=== PATIENT | female | born 1935 | race Caucasian/White ===

== ENCOUNTER 2021-04-28 16:58 | Inpatient (IN) ==
[2021-04-28] MEDS ORDERED: ENOXAPARIN 80 MG/0.8 ML SQ SCH (18:00)
[2021-04-28] MEDS ORDERED: Warfarin perPT PO PRN (18:00)
[2021-04-28] MEDS: metroNIDAZOLE 500 MG TABLET PO SCH (18:32)
[2021-04-28] MEDS: *HR* OxyCODONE/APAP 10/325 TABLET PO PRN (20:26)
[2021-04-28] MEDS: Insulin LISPRO 300 UNITS/3 ML VIAL SUBQ SCH (20:55)
[2021-04-28] MEDS ORDERED: NON-FORMULARY MEDICATION 1 EACH EACH (Apixaban [Eliquis] 5 MG Tab.Ds.Pk) PO SCH (21:00)
[2021-04-29] MEDS: metroNIDAZOLE 500 MG TABLET PO SCH ×3 (03:03→19:05)
[2021-04-29 06:51] LABS: Basophils % 0.4 %; Eosinophils % 0.3 %; Hematocrit 32.5 % (35.3-44.9); Hemoglobin 10.1 g/dL (11.5-15.4); Immature Granulocytes % 0.6 % (0-4); Lymphocytes # 0.6 K/mcL (0.6-4.6); Lymphocytes % 5.9 %; Mean Corpuscular HGB Conc 31.1 g/dL (31.6-35.5); Mean Corpuscular Hemoglobin 26.4 pg (28.0-33.3); Mean Corpuscular Volume 85.1 fL (83.0-100.0); Monocytes # 0.7 K/mcL (0.0-1.3); Neutrophils # 8.6 K/mcL (1.6-8.9); Platelet Count 590 K/mcL (140-400); Red Blood Count 3.82 M/mcL (3.82-4.97); Red Cell Distribution Width 22.3 % (11.5-14.5); Segmented Neutrophils % 85.8 %
[2021-04-29 07:14] LABS: BUN/Creatinine Ratio 19 (6-26); Blood Urea Nitrogen 6 mg/dL (8-23); Carbon Dioxide 30 mEq/L (23-29); Chloride 95 mEq/L (98-107); Glucose 128 mg/dL (70-105); Osmolality,Calculated 277 (280-300); Potassium 3.5 mEq/L (3.5-5.1); Sodium 134 mEq/L (136-145); eGFR For African Americans > 60 (> 60); eGFR For Non-African Americans > 60 (> 60)
[2021-04-29] MEDS ORDERED: *HR* Dextrose 50 % in Water (Syg) 50 ML SYRINGE IVP PRN (07:45)
[2021-04-29] MEDS ORDERED: Dextrose Gel 15 GM/37.5 ML TUBE PO PRN ×2 (07:45)
[2021-04-29] MEDS ORDERED: D5% in Water 1,000 ML IVC PRN (07:45)
[2021-04-29] MEDS: Insulin LISPRO 300 UNITS/3 ML VIAL SUBQ SCH ×4 (07:51→20:05)
[2021-04-29] MEDS ORDERED: CefTRIAXone 2,000 MG VIAL IVPB SCH (09:00)
[2021-04-29] MEDS: lisinopriL 10 MG TABLET PO SCH (09:58)
[2021-04-29] MEDS: Bisacodyl 10 MG RECTAL SUPPOSITORY RC SCH (09:58)
[2021-04-29] MEDS: Famotidine 20 MG TABLET PO SCH (09:58)
[2021-04-29] MEDS: cefTRIAXone 2,000 MG in 0.9 % Sodium Chloride Mini Bag 100 ML IVPB SCH (09:59)
[2021-04-29 10:36] LABS: INR 4.3
[2021-04-29 11:01] LABS: Prothrombin Time 47.3 Seconds (9.4-12.1)
[2021-04-29 20:00] LABS: INR 3.7; Prothrombin Time 41.1 Seconds (9.4-12.1)
[2021-04-29] MEDS: *HR* OxyCODONE/APAP 10/325 TABLET PO PRN (20:17)
[2021-04-30] MEDS: metroNIDAZOLE 500 MG TABLET PO SCH ×4 (02:11→17:15)
[2021-04-30] MEDS: *HR* OxyCODONE/APAP 10/325 TABLET PO PRN (06:07)
[2021-04-30 08:13] LABS: INR 3.5; Prothrombin Time 38.2 Seconds (9.4-12.1)
[2021-04-30] MEDS: Famotidine 20 MG TABLET PO SCH (09:18)
[2021-04-30] MEDS: lisinopriL 10 MG TABLET PO SCH (09:18)
[2021-04-30] MEDS: cefTRIAXone 2,000 MG in 0.9 % Sodium Chloride Mini Bag 100 ML IVPB SCH (09:19)
[2021-04-30] MEDS: Insulin LISPRO 300 UNITS/3 ML VIAL SUBQ SCH ×4 (09:19→21:14)
[2021-04-30] MEDS: Bisacodyl 10 MG RECTAL SUPPOSITORY RC SCH (09:47)
[2021-05-01] MEDS: metroNIDAZOLE 500 MG TABLET PO SCH ×3 (01:57→17:41)
[2021-05-01 05:54] LABS: Prothrombin Time 33.5 Seconds (9.4-12.1)
[2021-05-01] MEDS: Insulin LISPRO 300 UNITS/3 ML VIAL SUBQ SCH ×4 (09:09→21:25)
[2021-05-01] MEDS: cefTRIAXone 2,000 MG in 0.9 % Sodium Chloride Mini Bag 100 ML IVPB SCH (09:21)
[2021-05-01] MEDS: lisinopriL 10 MG TABLET PO SCH (09:22)
[2021-05-01] MEDS: Famotidine 20 MG TABLET PO SCH (09:22)
[2021-05-01] MEDS: Bisacodyl 10 MG RECTAL SUPPOSITORY RC SCH (09:23)
[2021-05-01] MEDS: *HR* OxyCODONE/APAP 10/325 TABLET PO PRN ×2 (09:23→21:24)
[2021-05-01] MEDS ORDERED: *HR* Warfarin 0.5 MG TABLET PO ONE (18:00)
[2021-05-01] MEDS: Sennosides/Docusate Sodium TABLET PO SCH (21:25)
[2021-05-01 23:22] LABS: Basophils % 0.4 %; Eosinophils % 0.2 %; Hematocrit 31.7 % (35.3-44.9); Hemoglobin 9.8 g/dL (11.5-15.4); Immature Granulocytes % 0.6 % (0-4); Lymphocytes # 1.4 K/mcL (0.6-4.6); Lymphocytes % 16.7 %; Mean Corpuscular HGB Conc 30.9 g/dL (31.6-35.5); Mean Corpuscular Hemoglobin 26.3 pg (28.0-33.3); Mean Corpuscular Volume 85.2 fL (83.0-100.0); Monocytes # 0.7 K/mcL (0.0-1.3); Neutrophils # 6.1 K/mcL (1.6-8.9); Platelet Count 400 K/mcL (140-400); Red Blood Count 3.72 M/mcL (3.82-4.97); Red Cell Distribution Width 22.2 % (11.5-14.5); Segmented Neutrophils % 74.1 %; White Blood Count 8.2 K/mcL (4.3-11.1)
[2021-05-01 23:24] LABS: ABG Base Excess 4 mEq/L (-2 to 3); ABG HCO3 29 mEq/L (21-27); ABG Oxygen Saturation 98 % (95-98); ABG PCO2 42 mmHg (35-45); ABG PH 7.44 pH Units (7.32-7.45); ABG PO2 93 mmHg (85-104); ABG TCO2 30 mEq/L (20-26)
[2021-05-01 23:34] LABS: BUN/Creatinine Ratio 26 (6-26); Blood Urea Nitrogen 8 mg/dL (8-23); Calcium 7.5 mg/dL (8.6-10.3); Carbon Dioxide 30 mEq/L (23-29); Chloride 95 mEq/L (98-107); Glucose 168 mg/dL (70-105); Osmolality,Calculated 274 (280-300); Potassium 3.1 mEq/L (3.5-5.1); Sodium 131 mEq/L (136-145); eGFR For African Americans > 60 (> 60); eGFR For Non-African Americans > 60 (> 60)
[2021-05-02] MEDS ORDERED: Potassium Chloride 40 MEQ, Lidocaine 1% 2 ML in 0.9 % Sodium Chloride 500 ML IVPB ONE (00:56)
[2021-05-02] MEDS ORDERED: Furosemide 20 MG/2 ML VIAL IVP ONE (01:18)
[2021-05-02] MEDS ORDERED: Saline Nasal Spray 44 ML BOTTLE NS PRN (01:19)
[2021-05-02] MEDS ORDERED: Artificial Tears SOLN 15 ML BOTTLE BOTH EYES PRN (01:19)
[2021-05-02] MEDS: Calcium Gluconate 1gm/50mL 1 GM/50 ML BAG IVPB SCH ×2 (01:37→02:35)
[2021-05-02] MEDS: metroNIDAZOLE 500 MG TABLET PO SCH ×4 (01:38→16:49)
[2021-05-02 02:00] LABS: Magnesium 1.5 mg/dL (1.6-2.6); Phosphorous 2.2 mg/dL (2.7-4.5)
[2021-05-02] MEDS: Saliva Stimulant 44.3ml BOTTLE PO PRN (02:35)
[2021-05-02] MEDS: Ipratropium 1 PUFF INHALER IH SCH ×4 (04:36→21:02)
[2021-05-02 07:59] LABS: INR 3.1; Prothrombin Time 34.8 Seconds (9.4-12.1)
[2021-05-02] MEDS: Insulin LISPRO 300 UNITS/3 ML VIAL SUBQ SCH ×4 (08:10→20:51)
[2021-05-02] MEDS: Sennosides/Docusate Sodium TABLET PO SCH ×3 (08:11→20:50)
[2021-05-02] MEDS: Chlorhexidine Rinse 15 ML MOUTHWASH MM SCH ×3 (08:11→20:50)
[2021-05-02] MEDS: Famotidine 20 MG TABLET PO SCH ×2 (08:11→09:21)
[2021-05-02] MEDS: lisinopriL 10 MG TABLET PO SCH ×2 (08:11→09:21)
[2021-05-02] MEDS: cefTRIAXone 2,000 MG in 0.9 % Sodium Chloride Mini Bag 100 ML IVPB SCH (09:22)
[2021-05-02] MEDS: *HR* OxyCODONE/APAP 10/325 TABLET PO PRN (16:50)
[2021-05-03] MEDS: metroNIDAZOLE 500 MG TABLET PO SCH ×3 (02:49→17:09)
[2021-05-03] MEDS: *HR* OxyCODONE/APAP 10/325 TABLET PO PRN (03:15)
[2021-05-03] MEDS: Ipratropium 1 PUFF INHALER IH SCH ×4 (04:21→22:42)
[2021-05-03 08:18] LABS: Hematocrit 31.6 % (35.3-44.9); Hemoglobin 9.7 g/dL (11.5-15.4); Mean Corpuscular HGB Conc 30.7 g/dL (31.6-35.5); Mean Corpuscular Hemoglobin 25.9 pg (28.0-33.3); Mean Corpuscular Volume 84.3 fL (83.0-100.0); Mean Platelet Volume 10.6 fL (9.4-12.4); Platelet Count 356 K/mcL (140-400); Red Blood Count 3.75 M/mcL (3.82-4.97); Red Cell Distribution Width 22.1 % (11.5-14.5); White Blood Count 7.4 K/mcL (4.3-11.1)
[2021-05-03 08:29] LABS: BUN/Creatinine Ratio 23 (6-26); Blood Urea Nitrogen 7 mg/dL (8-23); Calcium 7.7 mg/dL (8.6-10.3); Carbon Dioxide 31 mEq/L (23-29); Chloride 97 mEq/L (98-107); Glucose 157 mg/dL (70-105); Magnesium 1.4 mg/dL (1.6-2.6); Osmolality,Calculated 281 (280-300); Potassium 3.5 mEq/L (3.5-5.1); Sodium 135 mEq/L (136-145); eGFR For African Americans > 60 (> 60); eGFR For Non-African Americans > 60 (> 60)
[2021-05-03 08:31] LABS: INR 2.7; Prothrombin Time 29.6 Seconds (9.4-12.1)
[2021-05-03] MEDS ORDERED: Calcium Gluconate 1gm/50mL 1 GM/50 ML BAG IVPB ONE (08:42)
[2021-05-03] MEDS: Insulin LISPRO 300 UNITS/3 ML VIAL SUBQ SCH ×4 (09:16→20:52)
[2021-05-03] MEDS: Famotidine 20 MG TABLET PO SCH (09:43)
[2021-05-03] MEDS: Sennosides/Docusate Sodium TABLET PO SCH ×2 (09:44→20:53)
[2021-05-03] MEDS: lisinopriL 10 MG TABLET PO SCH (09:44)
[2021-05-03] MEDS: cefTRIAXone 2,000 MG in 0.9 % Sodium Chloride Mini Bag 100 ML IVPB SCH (09:44)
[2021-05-03] MEDS ORDERED: *HR* Warfarin 0.5 MG TABLET PO ONE (18:00)
[2021-05-04] MEDS: metroNIDAZOLE 500 MG TABLET PO SCH ×3 (02:40→17:26)
[2021-05-04] MEDS: Ipratropium 1 PUFF INHALER IH SCH ×4 (04:05→20:52)
[2021-05-04 07:37] LABS: INR 2.4
[2021-05-04] MEDS: Sennosides/Docusate Sodium TABLET PO SCH ×2 (09:56→21:40)
[2021-05-04] MEDS: Famotidine 20 MG TABLET PO SCH (09:56)
[2021-05-04] MEDS: lisinopriL 10 MG TABLET PO SCH (09:57)
[2021-05-04] MEDS: cefTRIAXone 2,000 MG in 0.9 % Sodium Chloride Mini Bag 100 ML IVPB SCH (09:59)
[2021-05-04] MEDS: Insulin LISPRO 300 UNITS/3 ML VIAL SUBQ SCH ×4 (10:00→21:41)
[2021-05-04] MEDS ORDERED: cefTRIAXone 2,000 MG in Water for inj. (sterile) 20 ML IVP SCH (15:00)
[2021-05-04] MEDS ORDERED: metroNIDAZOLE 500 MG TABLET PO SCH (15:00)
[2021-05-04 15:13] LABS: Basophils % 0.5 %; Eosinophils % 0.3 %; Hematocrit 33.5 % (35.3-44.9); Hemoglobin 10.3 g/dL (11.5-15.4); Immature Granulocytes % 0.5 % (0-4); Lymphocytes # 1.3 K/mcL (0.6-4.6); Lymphocytes % 19.1 %; Mean Corpuscular HGB Conc 30.7 g/dL (31.6-35.5); Mean Corpuscular Hemoglobin 26.2 pg (28.0-33.3); Mean Corpuscular Volume 85.2 fL (83.0-100.0); Mean Platelet Volume 11.2 fL (9.4-12.4); Monocytes # 0.6 K/mcL (0.0-1.3); Monocytes % 8.8 %; Neutrophils # 4.7 K/mcL (1.6-8.9); Platelet Count 322 K/mcL (140-400); Red Blood Count 3.93 M/mcL (3.82-4.97); Red Cell Distribution Width 21.6 % (11.5-14.5); Segmented Neutrophils % 70.8 %; White Blood Count 6.6 K/mcL (4.3-11.1)
[2021-05-04 15:27] LABS: BUN/Creatinine Ratio 20 (6-26); Blood Urea Nitrogen 6 mg/dL (8-23); eGFR For African Americans > 60 (> 60); eGFR For Non-African Americans > 60 (> 60)
[2021-05-04] MEDS ORDERED: *HR* Warfarin 1 MG TABLET PO ONE (18:00)
[2021-05-04] MEDS: *HR* OxyCODONE/APAP 10/325 TABLET PO PRN (21:40)
[2021-05-05] MEDS: metroNIDAZOLE 500 MG TABLET PO SCH ×3 (02:50→17:02)
[2021-05-05] MEDS: Ipratropium 1 PUFF INHALER IH SCH ×4 (04:26→22:08)
[2021-05-05] MEDS: *HR* OxyCODONE/APAP 10/325 TABLET PO PRN ×2 (05:47→21:47)
[2021-05-05 06:43] LABS: INR 2.2; Prothrombin Time 24.2 Seconds (9.4-12.1)
[2021-05-05] MEDS: Insulin LISPRO 300 UNITS/3 ML VIAL SUBQ SCH ×4 (07:40→21:48)
[2021-05-05] MEDS: cefTRIAXone 2,000 MG in 0.9 % Sodium Chloride Mini Bag 100 ML IVPB SCH (09:56)
[2021-05-05] MEDS: Famotidine 20 MG TABLET PO SCH (09:58)
[2021-05-05] MEDS: Sennosides/Docusate Sodium TABLET PO SCH ×2 (09:58→21:48)
[2021-05-05] MEDS: lisinopriL 10 MG TABLET PO SCH (09:59)
[2021-05-05] MEDS ORDERED: *HR* Warfarin 1 MG TABLET PO ONE (18:00)
[2021-05-05 21:02] LABS: Bilirubin,Urine Negative (Negative); Blood,Urine Negative (Negative); Clarity,Urine Clear (Clear); Color,Urine Dark Yellow (Yellow); Glucose,Urine (UA) Normal (Normal); Ketones,Urine Negative (Negative); Leukocyte Esterase,Urine Negative (Negative); Nitrite,Urine Positive (Negative); Protein,Urine 30 mg/dL (Neg-Trace); Urobilinogen,Urine Normal (Normal)
[2021-05-05 21:07] LABS: WBC,Urine 15-30 per hpf (0-3)
[2021-05-05 21:09] LABS: Budding Yeast,Urine Many per hpf (None Seen)
[2021-05-06] MEDS: metroNIDAZOLE 500 MG TABLET PO SCH ×3 (02:43→17:37)
[2021-05-06] MEDS: Ipratropium 1 PUFF INHALER IH SCH ×4 (04:54→22:31)
[2021-05-06 06:36] LABS: INR 2.8; Prothrombin Time 31.3 Seconds (9.4-12.1)
[2021-05-06] MEDS: Insulin LISPRO 300 UNITS/3 ML VIAL SUBQ SCH ×4 (07:41→21:43)
[2021-05-06] MEDS: lisinopriL 10 MG TABLET PO SCH (10:13)
[2021-05-06] MEDS: Famotidine 20 MG TABLET PO SCH (10:17)
[2021-05-06] MEDS: Fluconazole 100 MG TABLET PO SCH (10:17)
[2021-05-06] MEDS: Nystatin POWDER 30 GM BOTTLE TP SCH ×3 (10:18→21:43)
[2021-05-06] MEDS: cefTRIAXone 2,000 MG in 0.9 % Sodium Chloride Mini Bag 100 ML IVPB SCH (10:18)
[2021-05-06] MEDS: Sennosides/Docusate Sodium TABLET PO SCH ×2 (10:21→21:43)
[2021-05-06] MEDS ORDERED: *HR* Warfarin 0.5 MG TABLET PO ONE (18:00)
[2021-05-06] MEDS: *HR* OxyCODONE/APAP 10/325 TABLET PO PRN (21:42)
[2021-05-06] MEDS: Mirtazapine 15 MG TABLET PO SCH (21:43)
[2021-05-07] MEDS: metroNIDAZOLE 500 MG TABLET PO SCH ×3 (01:47→20:54)
[2021-05-07] MEDS: Ipratropium 1 PUFF INHALER IH SCH ×4 (04:56→22:42)
[2021-05-07 06:30] LABS: Basophils % 0.6 %; Eosinophils # 0.1 K/mcL (0.0-0.6); Eosinophils % 1.5 %; Hematocrit 32.9 % (35.3-44.9); Hemoglobin 10.3 g/dL (11.5-15.4); Immature Granulocytes % 0.2 % (0-4); Lymphocytes # 1.7 K/mcL (0.6-4.6); Lymphocytes % 32.1 %; Mean Corpuscular HGB Conc 31.3 g/dL (31.6-35.5); Mean Corpuscular Hemoglobin 26.3 pg (28.0-33.3); Mean Corpuscular Volume 84.1 fL (83.0-100.0); Monocytes # 0.4 K/mcL (0.0-1.3); Monocytes % 8.2 %; Platelet Count 234 K/mcL (140-400); Red Blood Count 3.91 M/mcL (3.82-4.97); Red Cell Distribution Width 21.9 % (11.5-14.5); Segmented Neutrophils % 57.4 %; White Blood Count 5.2 K/mcL (4.3-11.1)
[2021-05-07 06:31] LABS: INR 3.2; Prothrombin Time 34.9 Seconds (9.4-12.1)
[2021-05-07 06:44] LABS: Alanine Aminotransferase 15 Units/L (7-52); Albumin 2.2 g/dL (3.5-5.7); Albumin/Globulin Ratio 0.9 (1.1-2.2); Alkaline Phosphatase 59 Units/L (34-104); Aspartate Amino Transferase 18 Units/L (13-39); BUN/Creatinine Ratio 20 (6-26); Bilirubin,Total 0.4 mg/dL (0.3-1.0); Blood Urea Nitrogen 6 mg/dL (8-23); Calcium 7.6 mg/dL (8.6-10.3); Carbon Dioxide 32 mEq/L (23-29); Chloride 100 mEq/L (98-107); Globulin 2.4 g/dL (2.4-3.5); Glucose 119 mg/dL (70-105); Osmolality,Calculated 287 (280-300); Potassium 3.1 mEq/L (3.5-5.1); Sodium 139 mEq/L (136-145); Total Protein 4.6 g/dL (6.4-8.9); eGFR For African Americans > 60 (> 60); eGFR For Non-African Americans > 60 (> 60)
[2021-05-07] MEDS ORDERED: Potassium Chloride Elixir 20 MEQ/15 ML UDC PO ONE (07:47)
[2021-05-07] MEDS: Insulin LISPRO 300 UNITS/3 ML VIAL SUBQ SCH ×4 (08:01→20:55)
[2021-05-07] MEDS: lisinopriL 10 MG TABLET PO SCH (08:45)
[2021-05-07] MEDS: Fluconazole 100 MG TABLET PO SCH (08:45)
[2021-05-07] MEDS: Sennosides/Docusate Sodium TABLET PO SCH ×2 (08:46→20:54)
[2021-05-07] MEDS: Famotidine 20 MG TABLET PO SCH (08:46)
[2021-05-07] MEDS: Nystatin POWDER 30 GM BOTTLE TP SCH ×3 (08:47→20:55)
[2021-05-07] MEDS: cefTRIAXone 2,000 MG in 0.9 % Sodium Chloride Mini Bag 100 ML IVPB SCH (08:58)
[2021-05-07] MEDS: *HR* OxyCODONE/APAP 10/325 TABLET PO PRN (16:02)
[2021-05-07] MEDS: Mirtazapine 15 MG TABLET PO SCH (20:54)
[2021-05-08] MEDS: Ipratropium 1 PUFF INHALER IH SCH ×4 (04:00→22:13)
[2021-05-08] MEDS: metroNIDAZOLE 500 MG TABLET PO SCH ×3 (04:37→17:58)
[2021-05-08 05:41] LABS: INR 3.4; Prothrombin Time 37.5 Seconds (9.4-12.1)
[2021-05-08] MEDS: cefTRIAXone 2,000 MG in 0.9 % Sodium Chloride Mini Bag 100 ML IVPB SCH (08:18)
[2021-05-08] MEDS: Famotidine 20 MG TABLET PO SCH (08:18)
[2021-05-08] MEDS: lisinopriL 10 MG TABLET PO SCH (08:19)
[2021-05-08] MEDS: Sennosides/Docusate Sodium TABLET PO SCH ×2 (08:19→20:09)
[2021-05-08] MEDS: Insulin LISPRO 300 UNITS/3 ML VIAL SUBQ SCH ×4 (09:09→19:48)
[2021-05-08] MEDS: *HR* OxyCODONE/APAP 10/325 TABLET PO PRN (09:15)
[2021-05-08] MEDS: Nystatin POWDER 30 GM BOTTLE TP SCH ×3 (10:30→20:10)
[2021-05-08] MEDS: Fluconazole 100 MG TABLET PO SCH (10:33)
[2021-05-08] MEDS: Mirtazapine 15 MG TABLET PO SCH (20:09)
[2021-05-09] MEDS: Acetaminophen 325 MG TABLET PO PRN (00:58)
[2021-05-09] MEDS: metroNIDAZOLE 500 MG TABLET PO SCH ×4 (03:58→20:12)
[2021-05-09] MEDS: Ipratropium 1 PUFF INHALER IH SCH ×4 (04:14→22:53)
[2021-05-09 06:03] LABS: Prothrombin Time 33.2 Seconds (9.4-12.1)
[2021-05-09] MEDS: cefTRIAXone 2,000 MG in 0.9 % Sodium Chloride Mini Bag 100 ML IVPB SCH (08:32)
[2021-05-09] MEDS: Famotidine 20 MG TABLET PO SCH (08:33)
[2021-05-09] MEDS: Sennosides/Docusate Sodium TABLET PO SCH ×2 (08:34→20:12)
[2021-05-09] MEDS: Fluconazole 100 MG TABLET PO SCH (08:35)
[2021-05-09] MEDS: lisinopriL 10 MG TABLET PO SCH (08:35)
[2021-05-09] MEDS: Nystatin POWDER 30 GM BOTTLE TP SCH ×2 (08:36→18:18)
[2021-05-09] MEDS: Insulin LISPRO 300 UNITS/3 ML VIAL SUBQ SCH ×4 (08:53→21:46)
[2021-05-09] MEDS: Mirtazapine 15 MG TABLET PO SCH (20:12)
[2021-05-10] MEDS: Ipratropium 1 PUFF INHALER IH SCH ×4 (04:24→21:39)
[2021-05-10] MEDS: Nystatin POWDER 30 GM BOTTLE TP SCH ×4 (05:26→21:42)
[2021-05-10] MEDS: cefTRIAXone 2,000 MG in 0.9 % Sodium Chloride Mini Bag 100 ML IVPB SCH (08:01)
[2021-05-10] MEDS: Fluconazole 100 MG TABLET PO SCH (08:03)
[2021-05-10] MEDS: Sennosides/Docusate Sodium TABLET PO SCH ×2 (08:03→21:42)
[2021-05-10] MEDS: metroNIDAZOLE 500 MG TABLET PO SCH ×3 (08:03→19:41)
[2021-05-10] MEDS: Famotidine 20 MG TABLET PO SCH (08:03)
[2021-05-10] MEDS: lisinopriL 10 MG TABLET PO SCH (08:16)
[2021-05-10] MEDS: Insulin LISPRO 300 UNITS/3 ML VIAL SUBQ SCH ×4 (08:55→20:49)
[2021-05-10 10:39] LABS: BUN/Creatinine Ratio 21 (6-26); Blood Urea Nitrogen 7 mg/dL (8-23); Calcium 7.9 mg/dL (8.6-10.3); Carbon Dioxide 26 mEq/L (23-29); Chloride 103 mEq/L (98-107); Glucose 101 mg/dL (70-105); Osmolality,Calculated 280 (280-300); Sodium 136 mEq/L (136-145); eGFR For African Americans > 60 (> 60); eGFR For Non-African Americans > 60 (> 60)
[2021-05-10] MEDS ORDERED: *HR* Warfarin 0.5 MG TABLET PO ONE (18:00)
[2021-05-10] MEDS: Mirtazapine 15 MG TABLET PO SCH (19:41)
[2021-05-11] MEDS: Ipratropium 1 PUFF INHALER IH SCH ×4 (04:45→20:58)
[2021-05-11] MEDS: Famotidine 20 MG TABLET PO SCH (07:52)
[2021-05-11] MEDS: lisinopriL 10 MG TABLET PO SCH (07:52)
[2021-05-11] MEDS: Fluconazole 100 MG TABLET PO SCH (07:52)
[2021-05-11] MEDS: Sennosides/Docusate Sodium TABLET PO SCH ×2 (07:52→21:10)
[2021-05-11] MEDS: metroNIDAZOLE 500 MG TABLET PO SCH ×3 (07:52→21:49)
[2021-05-11] MEDS: Saliva Stimulant 44.3ml BOTTLE PO PRN (07:53)
[2021-05-11] MEDS: Insulin LISPRO 300 UNITS/3 ML VIAL SUBQ SCH ×4 (07:53→20:58)
[2021-05-11] MEDS: Nystatin POWDER 30 GM BOTTLE TP SCH ×3 (07:54→23:37)
[2021-05-11 09:31] LABS: INR 2.1; Prothrombin Time 23.2 Seconds (9.4-12.1)
[2021-05-11] MEDS: cefTRIAXone 2,000 MG in 0.9 % Sodium Chloride Mini Bag 100 ML IVPB SCH (11:35)
[2021-05-11] MEDS ORDERED: *HR* Warfarin 1 MG TABLET PO ONE (18:00)
[2021-05-11] MEDS: Mirtazapine 15 MG TABLET PO SCH (21:10)
[2021-05-12] MEDS: Ipratropium 1 PUFF INHALER IH SCH ×4 (04:40→22:05)
[2021-05-12 07:05] LABS: INR 2.2; Prothrombin Time 24.8 Seconds (9.4-12.1)
[2021-05-12] MEDS: Fluconazole 100 MG TABLET PO SCH (08:05)
[2021-05-12] MEDS: lisinopriL 10 MG TABLET PO SCH (08:05)
[2021-05-12] MEDS: metroNIDAZOLE 500 MG TABLET PO SCH ×3 (08:05→23:12)
[2021-05-12] MEDS: Famotidine 20 MG TABLET PO SCH (08:06)
[2021-05-12] MEDS: Sennosides/Docusate Sodium TABLET PO SCH ×2 (08:06→23:12)
[2021-05-12] MEDS: cefTRIAXone 2,000 MG in 0.9 % Sodium Chloride Mini Bag 100 ML IVPB SCH (08:17)
[2021-05-12] MEDS: Ondansetron ODT 4 MG TAB.RAPDIS SL PRN (08:41)
[2021-05-12] MEDS: *HR* OxyCODONE/APAP 10/325 TABLET PO PRN ×2 (09:27→23:12)
[2021-05-12] MEDS: Insulin LISPRO 300 UNITS/3 ML VIAL SUBQ SCH ×4 (09:50→23:07)
[2021-05-12] MEDS: Nystatin POWDER 30 GM BOTTLE TP SCH ×3 (09:51→23:16)
[2021-05-12] MEDS: Acetaminophen 325 MG TABLET PO PRN (17:56)
[2021-05-12] MEDS ORDERED: *HR* Warfarin 0.5 MG TABLET PO ONE (18:00)
[2021-05-12] MEDS: Mirtazapine 15 MG TABLET PO SCH (23:16)
[2021-05-13] MEDS: Ipratropium 1 PUFF INHALER IH SCH ×4 (03:47→22:28)
[2021-05-13] MEDS: Insulin LISPRO 300 UNITS/3 ML VIAL SUBQ SCH ×4 (08:33→20:02)
[2021-05-13] MEDS: Famotidine 20 MG TABLET PO SCH (08:39)
[2021-05-13] MEDS: lisinopriL 10 MG TABLET PO SCH (08:40)
[2021-05-13] MEDS: metroNIDAZOLE 500 MG TABLET PO SCH ×3 (08:40→20:02)
[2021-05-13] MEDS: Sennosides/Docusate Sodium TABLET PO SCH ×2 (08:40→20:01)
[2021-05-13] MEDS: Nystatin POWDER 30 GM BOTTLE TP SCH ×3 (08:41→20:02)
[2021-05-13 08:45] LABS: INR 2.6; Prothrombin Time 29.1 Seconds (9.4-12.1)
[2021-05-13] MEDS: cefTRIAXone 2,000 MG in 0.9 % Sodium Chloride Mini Bag 100 ML IVPB SCH (09:07)
[2021-05-13] MEDS: *HR* OxyCODONE/APAP 10/325 TABLET PO PRN (14:21)
[2021-05-13] MEDS: Mirtazapine 15 MG TABLET PO SCH (20:02)
[2021-05-14] MEDS: *HR* OxyCODONE/APAP 10/325 TABLET PO PRN ×3 (02:13→22:05)
[2021-05-14] MEDS: Ipratropium 1 PUFF INHALER IH SCH ×4 (05:18→22:53)
[2021-05-14 07:29] LABS: BUN/Creatinine Ratio 19 (6-26); Blood Urea Nitrogen 7 mg/dL (8-23); Calcium 7.7 mg/dL (8.6-10.3); Carbon Dioxide 24 mEq/L (23-29); Chloride 106 mEq/L (98-107); Glucose 123 mg/dL (70-105); Osmolality,Calculated 281 (280-300); Potassium 4.4 mEq/L (3.5-5.1); Sodium 136 mEq/L (136-145); eGFR For African Americans > 60 (> 60); eGFR For Non-African Americans > 60 (> 60)
[2021-05-14 07:48] LABS: Basophils # 0.1 K/mcL (0.0-0.2); Eosinophils # 0.2 K/mcL (0.0-0.6); Eosinophils % 2.8 %; Hematocrit 32.2 % (35.3-44.9); Immature Granulocytes % 0.4 % (0-4); Lymphocytes # 1.8 K/mcL (0.6-4.6); Lymphocytes % 24.7 %; Mean Corpuscular HGB Conc 31.1 g/dL (31.6-35.5); Mean Corpuscular Hemoglobin 26.8 pg (28.0-33.3); Mean Corpuscular Volume 86.3 fL (83.0-100.0); Mean Platelet Volume 11.6 fL (9.4-12.4); Monocytes # 0.7 K/mcL (0.0-1.3); Monocytes % 9.1 %; Neutrophils # 4.5 K/mcL (1.6-8.9); Platelet Count 243 K/mcL (140-400); Red Blood Count 3.73 M/mcL (3.82-4.97); Red Cell Distribution Width 20.8 % (11.5-14.5); White Blood Count 7.2 K/mcL (4.3-11.1)
[2021-05-14 07:54] LABS: INR 2.6; Prothrombin Time 29.1 Seconds (9.4-12.1)
[2021-05-14] MEDS: cefTRIAXone 2,000 MG in 0.9 % Sodium Chloride Mini Bag 100 ML IVPB SCH (08:01)
[2021-05-14] MEDS: Sennosides/Docusate Sodium TABLET PO SCH ×2 (08:03→21:53)
[2021-05-14] MEDS: metroNIDAZOLE 500 MG TABLET PO SCH ×3 (08:03→21:52)
[2021-05-14] MEDS: lisinopriL 10 MG TABLET PO SCH (08:04)
[2021-05-14] MEDS: Famotidine 20 MG TABLET PO SCH (08:04)
[2021-05-14] MEDS: Insulin LISPRO 300 UNITS/3 ML VIAL SUBQ SCH ×4 (08:16→21:53)
[2021-05-14] MEDS: Nystatin POWDER 30 GM BOTTLE TP SCH ×3 (08:17→21:53)
[2021-05-14] MEDS: Ondansetron ODT 4 MG TAB.RAPDIS SL PRN (14:26)
[2021-05-14] MEDS ORDERED: *HR* Warfarin 0.5 MG TABLET PO ONE (18:00)
[2021-05-14] MEDS: Mirtazapine 15 MG TABLET PO SCH (21:53)
[2021-05-15] MEDS: Ipratropium 1 PUFF INHALER IH SCH ×2 (04:20→09:29)
[2021-05-15 07:40] VITALS: BP 83/53; PULSE 91; RESP 18; TEMP 98.2
[2021-05-15 07:45] LABS: Prothrombin Time 22.1 Seconds (9.4-12.1)
[2021-05-15] MEDS: cefTRIAXone 2,000 MG in 0.9 % Sodium Chloride Mini Bag 100 ML IVPB SCH (08:33)
[2021-05-15] MEDS: Insulin LISPRO 300 UNITS/3 ML VIAL SUBQ SCH (08:33)
[2021-05-15] MEDS: Famotidine 20 MG TABLET PO SCH (08:35)
[2021-05-15] MEDS: Sennosides/Docusate Sodium TABLET PO SCH (08:36)
[2021-05-15] MEDS: metroNIDAZOLE 500 MG TABLET PO SCH (08:36)
[2021-05-15 09:32] VITALS: O2SAT 94
[2021-05-15] MEDS: lisinopriL 10 MG TABLET PO SCH (10:00)
[2021-05-15] MEDS: Nystatin POWDER 30 GM BOTTLE TP SCH (10:00)
[2021-05-15] MEDS ORDERED: *HR* Warfarin 1 MG TABLET PO ONE (18:00)
== END 2021-05-15 11:09 | DRG 441 ==
LOC: INPPIK 17:59
PROVIDERS: ADMIT Internal Medicine; ATTEND Internal Medicine